=== PATIENT | female | born 1965 | race Caucasian/White ===

== ENCOUNTER 2016-11-25 02:59 | Emergency (ER) | payer OTHER ==
--- NOTE | ~2016-11-25 | CR63 ---
[facility] A Service of [facility] & [facility] RADIOLOGY TEXT RESULTS PATIENT: FLORENCIA REEVES LOCATION: SED : 63 UNIT #: [id number] AGE: [address]: Eduar Stern DO SEX: F ORDER DR: [id number] [place] [id number] E MR#: [id number] Acc #: [id number] NAME: FLORENCIA REEVES : 1965 SEX: F STUDY DATE/TIME: 11/25/2016 2:19 UNIT: SED ROOM: STUDY DESCRIPTION: CR Chest 2 View Attending Physician: Eduar Stern D.O. Ordering Physician: Eduar Stern D.O. Primary Care Physician: Yogi Navas M.D. MEDICAL IMAGING REPORT This report is preliminary unless electronic signature is present. EXAM Two-view chest INDICATIONS Chest pain tonight. PROCEDURE Frontal and lateral views of the chest. COMPARISON 09/21/2014 FINDINGS Heart size is stable. No dense consolidation, effusion or pneumothorax. IMPRESSION No active process. No appreciable change from 09/21/2014. Dictated by... Raghav Mesa M.D. THIS IS AN ELECTRONICALLY VERIFIED REPORT Raghav Mesa M.D. at 11/28/2016 7:29 AM MELI/sola TD: 11/25/2016 05:07 JOB #: [id number] MEDICAL IMAGING REPORT Page 1 of 1
--- NOTE | ~2016-11-25 | CT2 ---
[facility] A Service of [facility] RADIOLOGY TEXT RESULTS PATIENT: FLORENCIA REEVES LOCATION: SED : 63 UNIT #: [id number] AGE: [address]: Eduar Stern DO SEX: F ORDER DR: [id number] [place] [id number] E MR#: [id number] Acc #: [id number] NAME: FLORENCIA REEVES : 1965 SEX: F STUDY DATE/TIME: 11/25/2016 3:07 UNIT: SED ROOM: STUDY DESCRIPTION: CT Abd and Pelv W Cont Attending Physician: Eduar Stern D.O. Ordering Physician: Eduar Stern D.O. Primary Care Physician: Yogi Navas M.D. MEDICAL IMAGING REPORT This report is preliminary unless electronic signature is present. EXAM CT abdomen and pelvis with contrast INDICATIONS Midsternal chest and epigastric abdominal pain tonight. PROCEDURE Contrast-enhanced CT of the abdomen and pelvis. COMPARISON 06/04/2012 FINDINGS Abdomen with contrast: There is some atelectasis in the right lung base. Liver, spleen unremarkable. 3 mm nonobstructing calculus lower pole left kidney. Adrenal glands, pancreas, gallbladder unremarkable. Bowel loops are nondilated. Uncomplicated diverticula in the sigmoid colon. Appendix is normal. Pelvis with contrast: No pelvic mass or fluid. No aggressive appearing bone lesion. IMPRESSION 1. No acute findings. 2. Small nonobstructing calculus in the lower pole of the left kidney. 1. Dictated by... Raghav Mesa M.D. THIS IS AN ELECTRONICALLY VERIFIED REPORT Raghav Mesa M.D. at 11/28/2016 7:29 AM [facility] A Service [facility] RADIOLOGY TEXT RESULTS PATIENT: FLORENCIA REEVES LOCATION: SED : 63 UNIT #: [id number] AGE: [address]: Eduar Stern DO SEX: F ORDER DR: Roberto TD: 11/25/2016 06:53 JOB #: [id number] MEDICAL IMAGING REPORT Page 1 of 1
--- NOTE | ~2016-11-25 | EKG ---
PATIENT: FLORENCIA REEVES UNIT #: [id number] Ventricular Rate: 88 BPM Atrial Rate: 88 BPM P-R Interval: 146 ms QRS Duration: 74 ms Q-T Interval: 382 ms QTC Calculation(Bezet): 462 ms P [place]: 57 degrees Calculated R [place]: 60 degrees Calculated T [place]: 66 degrees Diagnosis Line: Normal sinus rhythm Diagnosis Line: Nonspecific ST and T wave abnormality Diagnosis Line: Prolonged QT Diagnosis Line: Abnormal ECG Diagnosis Line: When compared with ECG of 21-SEP-2014 11:02, Diagnosis Line: Nonspecific T wave abnormality now evident in Diagnosis Line: Anterior leads Diagnosis Line: Confirmed by RADHA KIM MD ([id number]) on 11/30/2016 Diagnosis Line: 7:59:18 PM INTERPRETING MD: JUDY WRIGHT
[2016-11-25 01:51] LABS: BASOPHIL# 0.1 X10e3 (0-0.3); BASOPHIL% 0.9 % (0-2.5); EOSINOPHIL# 0.2 X10e3 (0-0.7); HEMATOCRIT 42.1 % (35.0-45.0); HEMOGLOBIN 14.6 gm/dL (12.0-16.0); LYMPHOCYTE# 4.5 X10e3 (1.0-3.5); LYMPHOCYTE% 60.6 % (17.0-45.0); MEAN CELL VOLUME 98.3 FL (83-96); MEAN CORPUSCULAR HEMOGLOBIN 34.2 PG (28-34); MEAN CORPUSCULAR HGB CONC 34.7 g/dL (30-36); MEAN PLATELET VOLUME 7.7 FL (6.5-11.5); MONOCYTE# 0.7 X10e3 (0-1.0); MONOCYTE% 8.8 % (3.0-12.0); NEUTROPHIL% 26.7 % (40-75); PLATELET COUNT 300 X10e3 (140-420); RED BLOOD COUNT 4.28 X10e (3.90-5.30); RED CELL DISTRIBUTION WIDTH 13.3 % (11.0-15.5); WHITE BLOOD COUNT 7.4 X10e3 (4.0-10.5)
[2016-11-25 01:53] LABS: POC - CKMB <1.0 ng/mL (0.0-7.9)
[2016-11-25 01:53] LABS: DIFF IND YES
[2016-11-25 01:54] LABS: POC - MYOGLOBIN 28.1 ng/mL (0.0-169.0); POC - TROPONIN <0.05 ng/mL (<=0.05)
[2016-11-25 01:58] LABS: ALBUMIN SERUM 4.1 g/dL (3.5-5.0); BILIRUBIN,TOTAL 0.3 mg/dL (0.2-2.0); CALCIUM SERUM 9.3 mg/dL (8.4-10.2); CREATININE SERUM 0.5 mg/dL (0.6-1.4); GLOM FILT RATE Estimated 111.3 mL/min (>60); POTASSIUM 3.3 mmol/L (3.5-5.1); PROTEIN TOTAL SERUM 7.2 g/dL (6.0-8.3)
[2016-11-25 02:09] LABS: URINE SOURCE CLEAN CATCH
[2016-11-25 02:12] LABS: URINE APPEARANCE CLEAR; URINE BILIRUBIN NEG (NEG); URINE BLOOD NEG (NEG); URINE COLOR YELLOW; URINE GLUCOSE NEG (NORM); URINE KETONE NEG (NEG); URINE LEUKOCYTE ESTERASE 1+ (NEG); URINE NITRATE POS (NEG); URINE PH 5.5 (5-8); URINE PROTEIN NEG (NEG); URINE UROBILINOGEN 0.2 MG/DL (NORM)
[2016-11-25 02:13] LABS: MICRO INDICATED? YES
[2016-11-25 02:21] LABS: CULTURE INDICATED? YES; URINE BACTERIA 2+ (NEG); URINE MUCUS PRESENT; URINE SQUAMOUS EPITHELIAL CELL OCCAS /[HPF]
[2016-11-25 02:22] LABS: AMPHETAMINE NEG (NEG); BARBITURATES NEG (NEG); BENZODIAZEPINES NEG (NEG); COCAINE NEG (NEG); MARIJUANA NEG (NEG); OPIATES NEG (NEG); TRICYCLIC ANTIDEPRESSANTS NEG (NEG); U METHADONE NEG (NEG)
[2016-11-25 02:27] LABS: PLATELET ESTIMATE NORMAL (NORMAL)
[2016-11-25 02:28] LABS: ANISOCYTOSIS SL; REACTIVE LYMPHS PRESENT
[~2016-11-25 02:59] MED LIST: ALBUTEROL17 GM INH; AZITHROMYCIN250 MG PO; B/P MED; BUSPAR5 M1 PO; DICLOFENAC PO; FLEXERIL10 M1 PO; KLONOPIN PO; LISINOPRIL PO; LOPRESSOR PO; MEDROL PO; NAPROSYN250 M1 PO; ORUDIS75 M1 DOB; PREDNISONE PO; REMERON PO; TUSSIN15 MG/5 ML PO; ZITHROMAX PO; ZITHROMAX1 G/PKT PO
[2016-11-25 03:28] LABS: POC - CKMB <1.0 ng/mL (0.0-7.9)
[2016-11-25 03:29] LABS: POC - MYOGLOBIN 46.9 ng/mL (0.0-169.0); POC - TROPONIN <0.05 ng/mL (<=0.05)
== END 2016-11-25 05:30 | disposition home or self-care (01) ==
LOC: SED 02:59
PROVIDERS: Emergency Medicine
DX: R07.2 Precordial pain (principal); N39.0 Urinary tract infection, site not specified; I10 Essential (primary) hypertension; J45.909 Unspecified asthma, uncomplicated; J44.9 Chronic obstructive pulmonary disease, unspecified; F17.200 Nicotine dependence, unspecified, uncomplicated; Z90.89 Acquired absence of other organs; Z98.890 Other specified postprocedural states; Z98.51 Tubal ligation status
CPT/HCPCS: 36415; 71020; 74177; 80053; 80307; 81003; 82553; 83690; 83874; 84484; 85025; 85379; 87086; 87088; 87186; 93005; 96361; 96365; 96375; 99284; G0480; J1956; J2270; J2405; Q9967